=== PATIENT | female | born 1975 | race Caucasian/White ===

== ENCOUNTER 2020-10-24 14:07 | Emergency (ER) | payer OTHER ==
[~2020-10-24] VITALS: Ht 170.2 cm; Wt 108.9 kg
[~2020-10-24 14:07] MED LIST: ALBU90OI6 INH; ALPR.25 PO; CELE200; CETI10; CETI5 PO; CYCL10 PO; DICL75ER PO; FEXO180; HYDACE10B PO; HYDACE5 PO; MULVITMINE; PROACE100; Percocet 5-3251 EACH PO; RABE20 PO; Singulair10 MG; Singulair10 MG PO; TOPI100 PO; TOPI50 PO; TRAZ100 PO
== END 2020-10-24 16:11 | disposition home or self-care (01) ==
LOC: ER 14:07
DX: S39.012A Strain of muscle, fascia and tendon of lower back, initial encounter (principal); S20.212A Contusion of left front wall of thorax, initial encounter; Z88.7 Allergy status to serum and vaccine; Z88.1 Allergy status to other antibiotic agents; Z88.8 Allergy status to other drugs, medicaments and biological substances; Z79.899 Other long term (current) drug therapy; W19.XXXA Unspecified fall, initial encounter
CPT/HCPCS: 71101; 72040; 72070; 72100; 72170; 96372; 99283-25; J1885